=== PATIENT | male | born 1960 | race African-American/Black ===

== ENCOUNTER 2022-09-14 14:32 | Emergency (ER) | payer BC, OTHER ==
[2022-09-14] MEDS ORDERED: FLUORESCEIN SODIUM 1 MG/WRAP ONE (15:29)
[2022-09-14] MEDS ORDERED: TETRACAINE HCL 0.5% 4ML OPTH ONE (15:29)
--- NOTE | 2022-09-14 15:31 | EDPHYS ---
Physician Documentation [facility] Name: Mikael Sharp Jr Age: 62 yrs Sex: Male : 1960 Arrival Date: 09/14/2022 Time: 14:32 Bed 12 Private MD: ED Physician Alfred Blake HPI: 09/14 15:06 This 62 yrs old Black Male presents to ER via Ambulatory with complaints of Foreign jmm Body In Eye. 15:06 The patient sustained Unknown. Onset: The symptoms/episode began/occurred acutely, 5 jmm day(s) ago. Duration: the symptoms. Aggravated by nothing. Alleviated by nothing. This is a 62 year old male with a history of htn that presents to the ED with complaints of right eye pain. This occurred after welding this past . Patient initially had sensitivity to light and pain. Symptoms have improved. Patient continues to have a FB sensation. Patient is UTD on tetanus immunizations. Historical: - Allergies: 15:34 No Known Allergies; ap3 - Home Meds: 15:34 None [Active]; ap3 - PMHx: 15:34 Hypertensive disorder; ap3 - Immunization history:: Client reports having NOT received the Covid vaccine. - Social history:: Smoking status: Patient denies any tobacco usage or history of. Patient uses street drugs, marijuana. ROS: 15:48 Constitutional: Negative for fever, chills, and weight loss. jmm 15:48 Eyes: Positive for foreign body sensation, pain. 15:48 All other systems are negative. Exam: 15:48 Constitutional: This is a well developed, well nourished patient who is awake, alert, jmm and in no acute distress. Head/Face: atraumatic. 15:48 ENT: Moist Mucus Membranes Neck: Trachea midline, Supple Chest/axilla: Normal chest wall appearance and motion. Cardiovascular: Regular rate and rhythm. No edema appreciated Respiratory: Normal respirations, no respiratory distress appreciated Abdomen/GI: Non distended Back: Normal ROM Skin: General appearance color normal MS/ Extremity: Moves all extremities, no obvious deformities appreciated, no edema noted to the lower extremities Neuro: Awake and alert Psych: Behavior is normal, Mood is normal, Patient is cooperative and pleasant 15:48 Eyes: Extraocular movements: intact throughout, Corneas: foreign body, on the right, at 3 o'clock. Vital Signs: 15:33 BP 150 / 86; Pulse 66; Resp 17; Pulse Ox 99% ; Weight 72.57 kg; Height 5 ft. 5 in. ; ap3 15:33 Body Mass Index 26.63 (72.57 kg, 165.1 cm) ap3 Procedures: 15:50 Foreign Body Removal: dirt, from the right eye, by using a cotton-tipped swab, [facility] Dressing: none, The patient tolerated the removal well. MDM: 15:06 Patient medically screened. [facility] 15:51 Differential diagnosis: Corneal abrasion of Foreign body in Acute iritis of Ultraviolet jm keratitis in right eye. Data reviewed: vital signs, nurses notes. I considered the following discharge prescriptions or medication management in the emergency department Medications were administered in the Emergency Department. See MAR. Counseling: I had a detailed discussion with the patient and/or guardian regarding: the historical points, exam findings, and any diagnostic results supporting the discharge/admit diagnosis, the need for outpatient follow up, to return to the emergency department if symptoms worsen or persist or if there are any questions or concerns that arise at home. ED course: FB removed in the ED. Ophthalmic abx prescribed. Advised to follow up with hi lo driver. Otherwise given strict return precautions. patient understood and agrees with the plan of care. . 09/14 15:06 Order name: Eye Tray; Complete Time: 15:36 [facility] 09/14 15:06 Order name: Fluoresene Opth strip; Complete Time: 15:36 [facility] Administered Medications: 15:36 Drug: Tobramycin Ophthalmic Ointment (0.3 %) 1 application {Note: by riccardo.} Route: ap3 Ophthalmic; Site: right eye; 15:37 Follow up: Response: No adverse reaction ap3 15:37 Drug: Tetracaine Ophthalmic Drops 0.5 % 1 drops {Note: by riccardo.} Route: Ophthalmic; ap3 Site: right eye; 15:37 Follow up: Response: No adverse reaction ap3 Disposition Summary: 09/14/22 15:30 Discharge Ordered Location: Home [facility] Condition: Stable [facility] Diagnosis - Foreign Body of Right Eye - Removed [facility] Followup: [facility] - With: Ray Oakes MD - When: 2 - 3 days - Reason: Recheck today's complaints, Continuance of care, Re-evaluation by your physician Discharge Instructions: - Discharge Summary Sheet jmm - Corneal Abrasion [facility] Forms: - Medication Reconciliation Form jm - Thank You Letter jmm - Antibiotic Education [facility] - Prescription Opioid Use [facility] Prescriptions: - tobramycin 0.3 % Ophthalmic ointment - instill 0.25 inch by OPHTHALMIC route 3 times per day for 7 days; 1 unit; [facility] Refills: 0, Product Selection Permitted Signatures: Riccardo White PA PA jmm Prokisch, Amanda, RN RN ap3 Corrections: (The following items were deleted from the chart) 15:50 15:06 This is a 62 year old male with a history of htn that presents to the ED with m complaints of right eye pain. This occurred after . [facility]
--- NOTE | 2022-09-14 16:02 | ER ---
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 Coronavirus screen: At this time, the client does not indicate any symptoms associated with coronavirus-19. Ebola Screen: No symptoms or risks identified at this time. Initial Sepsis Screen: Does the patient meet any 2 criteria? No. Patient's initial sepsis screen is negative. Does the patient have a suspected source of infection? No. Patient's initial sepsis screen is negative. Risk Assessment: Do you want to hurt yourself or someone else? Patient reports no desire to harm self or others. Onset of symptoms was September 09, 2022. 15:33 Method Of Arrival: Ambulatory ap3 15:33 Acuity: BRET 4 ap3 Triage Assessment: 15:35 General: Appears in no apparent distress. Behavior is calm, cooperative. Pain: ap3 Complains of pain in right eye. Neuro: Level of Consciousness is awake, alert, obeys commands, Oriented to person, place, time, situation. Cardiovascular: Patient's skin is warm and dry. Respiratory: Airway is patent Respiratory effort is even, unlabored, Respiratory pattern is regular, symmetrical. Historical: - Allergies: 15:34 No Known Allergies; ap3 - Home Meds: 15:34 None [Active]; ap3 - PMHx: 15:34 Hypertensive disorder; ap3 - Immunization history:: Client reports having NOT received the Covid vaccine. - Social history:: Smoking status: Patient denies any tobacco usage or history of. Patient uses street drugs, marijuana. Screenin:35 [facility] ED Fall Risk Assessment (Adult) History of falling in the last 3 months, ap3 including since admission No falls in past 3 months (0 pts). Abuse screen: Denies threats or abuse. Nutritional screening: No deficits noted. Tuberculosis screening: No symptoms or risk factors identified. Vital Signs: 15:33 BP 150 / 86; Pulse 66; Resp 17; Pulse Ox 99% ; Weight 72.57 kg; Height 5 ft. 5 in. ; ap3 15:33 Body Mass Index 26.63 (72.57 kg, 165.1 cm) ap3 ED Course: 14:33 Patient arrived in ED. am2 15:01 Riccardo White PA is PHCP. jmm 15:01 Scooter Syed MD is Attending Physician. jm 15:03 Riccardo White PA is PHCP. jmm 15:03 Alfred Blake MD is Attending Physician. jmm 15:30 Ray Oakes MD is Referral Physician. jmm 15:34 Triage completed. ap3 15:36 Arm band placed on right wrist. ap3 15:36 Patient has correct armband on for positive identification. ap3 15:37 Yanna Pressley, BHAVANA is Primary Nurse. ap3 15:37 Assist provider with eye exam of right eye. using fluorescein stain, Performed by Riccardo ap3 Cindy CURTIS Patient tolerated well. 16:01 Patient did not have IV access during this emergency room visit. ap3 Administered Medications: 15:36 Drug: Tobramycin Ophthalmic Ointment (0.3 %) 1 application {Note: by riccardo.} Route: ap3 Ophthalmic; Site: right eye; 15:37 Follow up: Response: No adverse reaction ap3 15:37 Drug: Tetracaine Ophthalmic Drops 0.5 % 1 drops {Note: by riccardo.} Route: Ophthalmic; ap3 Site: right eye; 15:37 Follow up: Response: No adverse reaction ap3 Medication: 15:36 VIS not applicable for this client. ap3 Outcome: 15:30 Discharge ordered by . [facility] 16:01 Discharged to home ambulatory. ap3 16:01 Condition: good 16:01 Discharge instructions given to patient, Instructed on discharge instructions, follow up and referral plans. medication usage, Demonstrated understanding of instructions, follow-up care, medications, Prescriptions given X 1. 16:01 Patient left the ED. ap3 Signatures: Riccardo White PA PA jmm Moreno, Amanda am2 Yanna Pressley, RN RN ap3
[2022-09-14 17:03] VITALS: BP 150/86; O2SAT 99
== END 2022-09-14 16:01 | disposition home or self-care (01) ==
LOC: ER 14:32
PROC: 08C0XZZ Extirpation of Matter from Right Eye, External Approach (ICD-10-PCS; principal; 2022-09-14)
DX: T15.91XA Foreign body on external eye, part unspecified, right eye, initial encounter (principal)
CPT/HCPCS: 99283

== ENCOUNTER → 2023-05-27 | Emergency (ER) | payer OTHER ==
--- NOTE | 2023-05-27 12:19 | RAD REPORT ---
EXAM DESCRIPTION: RAD - Chest Single View - 05/27/2023 12:15 pm CLINICAL HISTORY: PAIN COMPARISON: No comparisons FINDINGS: Lines: None. Lungs: No evidence of edema or pneumonia. Pleural: No significant pleural effusions or pneumothorax. Cardiac: The heart size is within normal limits. Mediastinum: Within normal limits. Bones: No acute fractures. Other: None IMPRESSION: No acute cardiopulmonary disease.
--- NOTE | 2023-05-27 12:23 | RAD REPORT ---
EXAM DESCRIPTION: RAD - Ribs Right - 05/27/2023 12:15 pm CLINICAL HISTORY: PAIN COMPARISON: Chest Single View dated 05/27/2023 FINDINGS/IMPRESSION: No displaced right-sided rib fractures identified. No pneumothorax. Nondisplace d rib fractures may not be apparent radiographically until healing begins.
--- NOTE | 2023-05-27 13:41 | ER ---
Nurse's Notes [facility] Name: Mikael Sharp Jr Age: 62 yrs Sex: Male : 1960 Arrival Date: 05/27/2023 Time: 11:11 Bed IW1 Private MD: Diagnosis: Sprain of ribs Presentation: 05/27 11:18 Chief complaint: Tripped and fell onto metal frame and landed on right side, now c/o hb right lateral chest wall pain 12/23. Coronavirus screen: At this time, the client does not indicate any symptoms associated with coronavirus-19. Ebola Screen: No symptoms or risks identified at this time. Initial Sepsis Screen: Does the patient meet any 2 criteria? No. Patient's initial sepsis screen is negative. Does the patient have a suspected source of infection? No. Patient's initial sepsis screen is negative. Risk Assessment: Do you want to hurt yourself or someone else? Patient reports no desire to harm self or others. Onset of symptoms was May 27, 2023. 11:18 Method Of Arrival: Ambulatory hb 11:18 Acuity: BRET 4 hb Historical: - Allergies: 11:20 No Known Allergies; hb - Home Meds: 11:20 None [Active]; hb - PMHx: 11:20 Hypertensive disorder; hb - PSHx: 11:20 None; hb - Immunization history:: Adult Immunizations up to date. - Social history:: Smoking status: Patient denies any tobacco usage or history of. Screenin:48 [facility] ED Fall Risk Assessment (Adult) History of falling in the last 3 months, ap3 including since admission No falls in past 3 months (0 pts). Abuse screen: Denies threats or abuse. Nutritional screening: No deficits noted. Tuberculosis screening: No symptoms or risk factors identified. Assessment: 13:47 General: Appears uncomfortable, Behavior is calm, cooperative, appropriate for age. ap3 Pain: Complains of pain in right lateral anterior chest. Neuro: Level of Consciousness is awake, alert, obeys commands. Cardiovascular: Patient's skin is warm and dry. Respiratory: Airway is patent Respiratory effort is even, unlabored, Respiratory pattern is regular, symmetrical. Vital Signs: 11:18 BP 145 / 93; Pulse 84; Resp 16; Temp 98.3(TE); Pulse Ox 96% on R/A; Weight 73.94 kg; hb Height 5 ft. 5 in. ; Pain 8; 11:18 Body Mass Index 27.12 (73.94 kg, 165.1 cm) hb 11:18 Pain Scale: Adult hb ED Course: 11:14 Patient arrived in ED. mr 11:14 Preet Villarreal MD is Attending Physician. ec2 11:20 Triage completed. hb 11:21 Arm band placed on left wrist. hb 12:15 CXR XRAY In Process Unspecified. EDMS 12:15 Ribs Right XRAY In Process Unspecified. EDMS 13:48 Patient has correct armband on for positive identification. Provided Education on: ap3 discharge instructions. 13:48 No provider procedures requiring assistance completed. Patient did not have IV access ap3 during this emergency room visit. Administered Medications: No medications were administered Medication: 13:48 VIS not applicable for this client. ap3 Outcome: 13:40 Discharge ordered by . ec2 13:48 Discharged to home ambulatory, ap3 13:48 Condition: good 13:48 Discharge instructions given to patient, Instructed on discharge instructions, follow up and referral plans. medication usage, Demonstrated understanding of instructions, follow-up care, medications, Prescriptions given X 1, 13:49 Patient left the ED. ap3 Signatures: Dispatcher [employer] Charity Nguyen, Marvin Wong mr GloriaMey, RN Yanna Murguia RN RN ap3 Preet Villarreal MD MD ec2
--- NOTE | 2023-05-27 13:41 | EDPHYS ---
Physician Documentation [facility] Name: Mikael Sharp Jr Age: 62 yrs Sex: Male : 1960 Arrival Date: 05/27/2023 Time: 11:11 Bed IW1 Private MD: ED Physician Preet Villarreal HPI: 05/27 11:30 This 62 yrs old Black Male presents to ER via Ambulatory with complaints of Fall ec2 Injury, Rib pain. 11:30 Patient arrives today for evaluation of right rib pain. States that he was walking and ec2 subsequently tripped and fell and injured the right side of his chest. Patient reports no difficulty breathing, reports pain localized to the bony aspect of the chest wall. Patient denies any abdominal pain.. Historical: - Allergies: 11:20 No Known Allergies; hb - Home Meds: 11:20 None [Active]; hb - PMHx: 11:20 Hypertensive disorder; hb - PSHx: 11:20 None; hb - Immunization history:: Adult Immunizations up to date. - Social history:: Smoking status: Patient denies any tobacco usage or history of. ROS: 11:30 Constitutional: as per hpi ec2 Exam: 11:30 Constitutional: GEN: NAD Head: atraumatic Eyes: EOMI Ears: External ears are ec2 normal. CV: regular rate LUNGS: no respiratory distress ABD: non-distended SKIN: no evidence of rashes MSK: Right lateral lower chest wall with TTP, no deformities or crepitus, no ecchymosis noted. NEURO: moves all extremities equally Vital Signs: 11:18 BP 145 / 93; Pulse 84; Resp 16; Temp 98.3(TE); Pulse Ox 96% on R/A; Weight 73.94 kg; hb Height 5 ft. 5 in. ; Pain 8/10; 11:18 Body Mass Index 27.12 (73.94 kg, 165.1 cm) hb 11:18 Pain Scale: Adult hb MDM: 11:20 Patient medically screened. ec2 11:30 Data reviewed: vital signs. ED course: Patient arrives today for evaluation of right ec2 chest wall pain after a fall. Examination remarkable for well-appearing nontoxic individual is otherwise in no acute distress with a reassuring examination with slight TTP to the right lateral chest wall. Will obtain chest x-ray and rib series. Currently considered rib fracture, rib contusion. Low suspicion for pneumothorax, low suspicion for solid organ abdominal injury given the well appearance and benign abdomen.. 13:23 ED course: Chest x-ray and rib x-ray series shows no traumatic process. Will discharge ec2 home, have him follow-up with a primary care doctor. Return precautions given. . 05/27 11:25 Order name: CXR XRAY; Complete Time: 13:23 ec2 05/27 11:25 Order name: Ribs Right XRAY; Complete Time: 13:23 ec2 Administered Medications: No medications were administered Disposition Summary: 05/27/23 13:40 Discharge Ordered Notes: Location: Home ec2 Condition: Stable ec2 Diagnosis - Sprain of ribs ec2 Followup: ec2 - With: Private Physician - When: - Reason: Recheck today's complaints Discharge Instructions: - Discharge Summary Sheet ec2 - Rib Contusion ec2 Forms: - Medication Reconciliation Form ec2 - Thank You Letter ec2 - Antibiotic Education ec2 - Prescription Opioid Use ec2 - Patient Portal Instructions ec2 - Leadership Thank You Letter ec2 Prescriptions: - methocarbamol 500 mg Oral tablet - take 2 tablets ORAL route 4 times per day; 20 tablet; Refills: 0, Product ec2 Selection Permitted Signatures: Dispatcher [employer] EDMey Lew RN RN hb Corral, Edwin, MD MD ec2 Corrections: (The following items were deleted from the chart) 12:06 12:05 Patient medically screened. ec2 ec2
[2023-05-27 16:52] VITALS: BP 145/93; TEMP 98.3; O2SAT 96
== END ==
LOC: ER 11:11
DX: S23.41XA Sprain of ribs, initial encounter (principal); I10 Essential (primary) hypertension
CPT/HCPCS: 71045; 99283